=== PATIENT | male | born 1980 | race Caucasian/White ===

== ENCOUNTER 2018-07-25 11:18 | Emergency (ER) | payer OTHER ==
[~2018-07-25] VITALS: Ht 175.3 cm; Wt 82.0 kg
[2018-07-25 11:20] VITALS: BP 159/83; PULSE 83; RESP 18; Ht 175.3 cm; Wt 82.0 kg
[2018-07-25] MEDS ORDERED: ONDANSETRON 4 MG INJ IV STA (11:51)
[2018-07-25] MEDS ORDERED: morphine 4 MG/ML VIAL IV STA (11:51)
--- NOTE | 2018-07-25 13:16 | ERD ---
ER Documentation Chief Complaint Chief Complaint bib ra from work c/o rt groin pain HPI Patient is a 38-year-old male with no past medical history presents to the ER for concerns of right lower quadrant abdominal pain/groin pain which started [employer]. Patient has brought in to the ER via rescue ambulance from work. 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 Patient states he sat down to "discuss some issues" with someone at work. Patient states he coughed a few times and then felt "balloon filling up" in his right lower abdomen. Patient states he then "felt a pop." At this time patient describes his pain to be in his right upper/lower abdomen and right groin. Patient describes the pain to be sharp. Patient denies any fevers or chills. Patient denies any nausea, vomiting or diarrhea. Patient denies any chest pain or shortness of breath, neck pain or back pain. Patient denies any dizziness. Patient denies any falls or trauma. ROS All systems reviewed and are negative except as per history of present illness. Medications Home Meds Active Scripts Hydrocodone/Acetaminophen ([place] 5-325 Tablet) 1 Each Tablet, 1 TAB PO Q6H PRN for PAIN, #7 TAB Prov:CHRISTINA HANDLEY PA-C 07/25/18 Ibuprofen* (Motrin*) 600 Mg Tab, 600 MG PO Q6, #30 TAB Prov:CHRISTINA HANDLEY PA-C 07/25/18 PMhx/Soc Medical and Surgical Hx: pt denies Medical Hx, pt denies Surgical Hx Hx Alcohol Use: No Hx Substance Use: No Hx Tobacco Use: No FmHx Family History: No diabetes, No coronary disease, No other Physical Exam Vitals Physical Exam GENERAL: Well-developed, well-nourished male. Appears in no acute distress. Speaking on cell phone. HEAD: Normocephalic, atraumatic. EYES: Pupils are equally reactive bilaterally. EOMs grossly intact. No conjunctival erythema. ENT: Moist mucous membranes. No uvula deviation. No kissing tonsils. NECK: Supple. No meningismus. Normal range of motion of the neck. LUNG: Clear to auscultation bilaterally. No rhonchi, wheezing, rales or coarse breath sounds. HEART: Regular rate and rhythm. No murmurs, rubs or gallops. Equal upper extremity pulses bilaterally. ABDOMEN: Soft, nondistended. Tender to palpation in the right upper and lower quadrants. Tender to palpation in the right groin. No rebound tenderness, no guarding. (-) McBurney's point tenderness. No CVA tenderness. BACK: No midline tenderness. EXTREMITIES: Equal pulses bilaterally. No peripheral clubbing, cyanosis or edema. No unilateral leg swelling. NEUROLOGIC: Alert and oriented. Moving all four extremities without any difficulty. Normal speech. Steady gait. SKIN: Normal color. Warm and dry. No rashes or lesions. Results 24 hrs Laboratory Tests Test 07/25/18 12:40 07/25/18 14:00 White Blood Count 7.5 10^3/ul Red Blood Count 5.58 10^6/ul Hemoglobin 17.3 g/dl Hematocrit 50.5 % Mean Corpuscular Volume 90.5 fl Mean Corpuscular Hemoglobin 31.0 pg Mean Corpuscular Hemoglobin Concent 34.3 g/dl Red Cell Distribution Width 12.2 % Platelet Count 270 10^3/UL Mean Platelet Volume 10.7 fl Immature Granulocytes % 0.300 % Neutrophils % 67.6 % Lymphocytes % 23.8 % Monocytes % 6.9 % Eosinophils % 0.9 % Basophils % 0.5 % Nucleated Red Blood Cells % 0.0 /100WBC Immature Granulocytes # 0.020 10^3/ul Neutrophils # 5.1 10^3/ul Lymphocytes # 1.8 10^3/ul Monocytes # 0.5 10^3/ul Eosinophils # 0.1 10^3/ul Basophils # 0.0 10^3/ul Nucleated Red Blood Cells # 0.0 10^3/ul Sodium Level 143 mmol/L Potassium Level 4.3 mmol/L Chloride Level 105 mmol/L Carbon Dioxide Level 27 mmol/L Anion Gap 11 Blood Urea Nitrogen 19 mg/dl Creatinine 1.12 mg/dl Est Glomerular Filtrat Rate mL/min > 60 mL/min Glucose Level 90 mg/dl Calcium Level 9.7 mg/dl Total Bilirubin 0.8 mg/dl Direct Bilirubin 0.00 mg/dl Indirect Bilirubin 0.8 mg/dl Aspartate Amino Transf (AST/SGOT) 36 IU/L Alanine Aminotransferase (ALT/SGPT) 31 IU/L Alkaline Phosphatase 67 IU/L Total Protein 9.2 g/dl Albumin 5.0 g/dl Globulin 4.20 g/dl Albumin/Globulin Ratio 1.19 Lipase 126 U/L Urine Color YELLOW Urine Clarity CLEAR Urine pH 7.0 Urine Specific Murdock 1.021 Urine Ketones TRACE mg/dL Urine Nitrite NEGATIVE mg/dL Urine Bilirubin NEGATIVE mg/dL Urine Urobilinogen NEGATIVE mg/dL Urine Leukocyte Esterase NEGATIVE Neena/ul Urine Hemoglobin NEGATIVE mg/dL Urine Glucose NEGATIVE mg/dL Urine Total Protein NEGATIVE mg/dl Current Medications Medications Dose Sig/Silverio Start Time Status Last (Trade) Ordered Route PRN Stop Time Admin Dose Reason Admin Morphine 4 mg ONCE STAT 07/25/18 DC 07/25/18 Sulfate IV 11:51 07/25/18 12:08 (morphine) 11:53 Ondansetron 4 mg ONCE STAT 07/25/18 DC 07/25/18 HCl (Zofran IV 11:51 07/25/18 12:08 Inj) 11:53 Procedures/MDM ED COURSE: The patient was stable throughout ED course. I kept the patient and/or family informed of laboratory and diagnostic imaging results throughout the ED course. DIAGNOSTIC IMAGING: Read by radiologist. Patient: ALEXANDRA AVENDANO : 1980 Age: 38 Sex: M MR #: [id number] DOS: 07/25/18 1201 Ordering MD: CHRISTINA HANDLEY PA-C Location: [facility] Room/Bed: PROCEDURE: CT Abdomen and Pelvis without intravenous contrast. CLINICAL INDICATION: Abdominal pain TECHNIQUE: CT scan of the abdomen and pelvis without intravenous contrast was performed on a multi-detector high-resolution CT scanner. Coronal and sagittal reformatted images were obtained from the axial source images. DICOM images are available. CTDIvol 15.04 mGy, and DLP 949.4 mGy.cm. One or more of the following dose reduction techniques were used: - Automated exposure control. - Adjustment of the mA and/or kV according to patient size. - Use of iterative reconstruction technique. COMPARISON: None available FINDINGS: In the absence of intravenous contrast, the study constitutes a limited assessment of the solid organs, bowel and vessels. Lower thorax: Normal. Liver: Normal. Biliary: Gallbladder is normal. No intrahepatic or extrahepatic biliary dilatation. Pancreas: Normal. Spleen: Normal. Adrenal Glands: Normal. Urinary: Normal. Gastrointestinal: Normal. Lymph nodes: No enlarged abdominal or pelvic lymph nodes. Vascular: Normal. Peritoneum/mesentery: No free fluid or free air. Reproductive organs: Normal. Musculoskeletal: No suspicious osseous lesions. IMPRESSION: No CT evidence of mass, lymphadenopathy, or acute inflammatory process. RPTAT: HH Zhou Segal Physician Date Time Electronically viewed and signed by Zhou Segal Physician on 07/25/2018 12:36 HtN/ CC: CHRISTINA HANDLEY PA-C [id number] PROCEDURES: None. MEDICATIONS GIVEN: Morphine, Zofran Patient tolerated medication well with no adverse reactions. Patient reported improvement in pain. MEDICAL DECISION MAKING: This is a 38-year-old male brought in by rescue ambulance from work for concerns of right sided abdominal pain/groin pain which started prior to arrival. Pat ient states his symptoms started after he coughed a few times.. Vital signs were reviewed. Patient is afebrile. Case was discussed with supervising physician Dr. Shrestha who advised me to obtain blood work and CT abdomen and pelvis without IV contrast. IV line was established. Blood work was obtained. CBC showed no evidence of systemic infection or severe anemia. CMP showed no evidence of electrolyte abnormalities, severe acidosis, alkalosis, renal failure, or liver disease. Lipase showed no evidence of acute pancreatitis. UA showed no evidence of acute infection or hematuria. CT abdomen pelvis is unremarkable. See formal report above. Upon discussing results patient, patient was resting comfortable no signs of distress. Patient was advised to follow-up with his primary care physician for further management of his symptoms. At this time, the patient's presentation is most consistent with right-sided abdominal pain and groin pain likely of musculoskeletal origin. Differential diagnosis included but was not limited to aortic dissection, acute coronary syndrome, AAA, incarcerated vs strangulated hernia, mesenteric ischemia, lower lobe pneumonia, DKA, bowel perforation, cholecystitis, choledocholithiasis, ascending cholangitis, hepatic abscess, pancreatits, splenic rupture, diverticulitis, UTI, pyelonephritis, nephrolithiasis, appendicitis, constipation, testicular torsion, epididymitis, urethritis, or prostatitis. PRESCRIPTIONS: [place], ibuprofen The patient has been prescribed [place] during this encounter. The patient has been warned about the use of narcotics. The patient should not drive or operate heavy machinery while taking this medication. The patient was also warned about the addictive properties of narcotic medications. Narcan prescription was not given as patient was given less than 10 tablets of [place] 5 mg. Patient does not have a history of recent benzo use. In addition, there is no obvious evidence of prior history of opiate abuse or benzo use. DISCHARGE: At this time, patient is stable for discharge and outpatient management. I have instructed the patient to follow-up with his/her primary care physician in 1-2 days. I have instructed the patient to promptly return to the ER at any time for any new or worsening symptoms including increased pain, nausea, vomiting, diarrhea, fever, weakness or LOC. The patient and/or family expressed understanding of and agreement with this plan. All questions were answered. Home care instructions were provided. Patient's blood pressure was elevated (>120/80) but appears stable without evidence of hypertensive emergency, hypertensive urgency or end-organ failure. I had discussion with the patient about the risks of hypertension. I have advised the patient to follow up with his/her primary care physician for outpatient monitoring and treatment for hypertension in 2-3 days. I have instructed the patient to return to the ER for any new or worsening symptoms including chest pain, shortness of breath, headache, blurred vision, confusion, nausea, vomiting or LOC. Disclaimer: Inadvertent spelling and grammatical errors are likely due to EHR/dictation software use and do not reflect on the overall quality of patient care. Also, please note that the electronic time recorded on this note does not necessarily reflect the actual time of the patient encounter. Departure Diagnosis: Primary Impression: Groin pain, lower right quadrant Additional Impression: Abdominal pain Abdominal location: unspecified location Qualified Codes: R10.9 - Unspecified abdominal pain Condition: Fair Patient Instructions: Groin Strain, Abdominal Pain, Unkown Cause, (Male) Referrals: [facility] YOU HAVE RECEIVED A MEDICAL SCREENING EXAM AND THE RESULTS INDICATE THAT YOU DO NOT HAVE A CONDITION THAT REQUIRES URGENT TREATMENT IN THE EMERGENCY DEPARTMENT. FURTHER EVALUATION AND TREATMENT OF YOUR CONDITION CAN WAIT UNTIL YOU ARE SEEN IN YOUR DOCTORS OFFICE WITHIN THE NEXT 1-2 DAYS. IT IS YOUR RESPONSIBILITY TO MAKE AN APPOINTMENT FOR FOLOW-UP CARE. IF YOU HAVE A PRIMARY DOCTOR --you should call your primary doctor and schedule an appointment IF YOU DO NOT HAVE A PRIMARY DOCTOR YOU CAN CALL OUR PHYSICIAN REFERRAL HOTLINE AT IF YOU CAN NOT AFFORD TO SEE A PHYSICIAN YOU CAN CHOSE FROM THE FOLLOWING [facility] [address] [facility] [address] [facility] [address] [facility] [address] [facility] [address] [facility] [facility] [address] [facility] YOU HAVE RECEIVED A MEDICAL SCREENING EXAM AND THE RESULTS INDICATE THAT YOU DO NOT HAVE A CONDITION THAT REQUIRES URGENT TREATMENT IN THE EMERGENCY DEPARTMENT. FURTHER EVALUATION AND TREATMENT OF YOUR CONDITION CAN WAIT UNTIL YOU ARE SEEN IN YOUR DOCTORS OFFICE WITHIN THE NEXT 1-2 DAYS. IT IS YOUR RESPONSIBILITY TO MAKE AN APPOINTMENT FOR FOLOW-UP CARE. IF YOU HAVE A PRIMARY DOCTOR --you should call your primary doctor and schedule and appointment IF YOU DO NOT HAVE A PRIMARY DOCTOR YOU CAN CALL OUR PHYSICIAN REFERRAL HOTLINE AT . IF YOU CAN NOT AFFORD TO SEE A PHYSICIAN YOU CAN CHOSE FROM THE FOLLOWING [facility]: [facility] [address] [place] [address] [facility] [address] [place] [address] [facility] [address] [place] [address] Additional Instructions: Call your primary care doctor TOMORROW for an appointment during the next 1-2 days.See the doctor sooner or return here if your condition worsens before your appointment time. CHRISTINA HANDLEY PA-C Jul 25, 2018 13:16
[2018-07-25] MEDS ORDERED: IBUP-1542 PO (15:26)
[2018-07-25] MEDS ORDERED: HYDR-4011 PO (15:27)
== END 2018-07-25 15:47 | disposition home or self-care (01) ==
LOC: FTE 11:18
DX: R10.31 Right lower quadrant pain (principal)
CPT/HCPCS: 36415; 74176; 80053; 81003; 83690; 85025; 96374; 96375; 99285; J2270; J2405